=== PATIENT | female | born 1985 | race Two or more races ===

== ENCOUNTER 2017-05-12 12:43 | Emergency (ER) | payer SELFPAY ==
[~2017-05-12] VITALS: Ht 165.1 cm; Wt 90.7 kg
[~2017-05-12 12:43] MED LIST: IBUPROFEN600 MG ORAL; NKM; NORCO 5-325 TA1 EACH ORAL; VALIUM5 MG PO
[2017-05-12] MEDS ORDERED: OCUFLOX5 ML OP (13:30)
--- NOTE | 2017-05-12 14:38 | Emergency Room Report ---
History of Present Illness General Chief Complaint: Eye Problems Source: Patient Present Illness [facility] The patient is a 31 yo F presenting with bilateral eye pain, eye discharge, and eyelid swelling which began 3 days prior. Pain is a 4/10 dull ache to both eyes. She noticed yellow discharge. No changes in vision. She denies other symptoms such as fever, chills, [place], nasal congestion Allergies: Coded Allergies: No Known Allergies (Unverified , 03/20/13) Patient History Past Medical History: see triage record Pertinent Family History: none Reviewed Nursing Documentation: PMH: Agreed, PSxH: Agreed Nursing Documentation-PMH Past Medical History: No Stated History Review of Systems All Other Systems: negative except mentioned in HPI Physical Exam Vital Signs Date Time Temp Pulse Resp B/P Pulse Ox O2 Delivery O2 Flow Rate FiO2 05/12/17 13:01 98.8 97 20 120/68 99 Room Air Sp02 EP Interpretation: reviewed, normal General Appearance: no apparent distress, alert, GCS 15, non-toxic Head: normocephalic, atraumatic Eyes: bilateral eye EOMI, bilateral eye PERRL, bilateral eye Scleral Injection , bilateral eye lid inflammation ENT: hearing grossly normal, normal pharynx, no angioedema, normal voice Neck: full range of motion, supple/symm/no masses Neurologic: alert, oriented x3, responsive, motor strength/tone normal, sensory intact, speech normal Psychiatric: judgement/insight normal, memory normal, mood/affect normal, no suicidal/homicidal ideation Skin: normal color, no rash, warm/dry, well hydrated Medical Decision Making PA Attestation Dr. Gomez is my supervising physician. Patient management was discussed with my supervising physician Diagnostic Impression: Primary Impression: Bacterial conjunctivitis of both eyes ER Course The patient is a 31 yo F presenting with bilateral eye pain, eye discharge, and eyelid swelling Differential diagnoses considered but not limited to allergic conjunctivitis, bacterial conjunctivitis, viral conjunctivitis, blepharitis, hordeolum PE: afebrile. NAD Bilat upper eyelid edema, conjunctival injection, and yellow discharge She will be DC'ed with Ocuflox and needs to also use warm compresses. ER precautions given Last Vital Signs Date Time Temp Pulse Resp B/P Pulse Ox O2 Delivery O2 Flow Rate FiO2 05/12/17 13:01 98.8 97 20 120/68 99 Room Air Status: improved Disposition: HOME, SELF-CARE Condition: Improved Scripts Ofloxacin (OCUFLOX) 5 Ml Drops 2 DROP OP Q4HR, #5 ML Prov: JUAN AGUILERA 05/12/17 Referrals: NOT CHOSEN IPA/MD,REFERRING (PCP) Patient Instructions: Bacterial Conjunctivitis Additional Instructions: I discussed my findings with the patient. All questions and concerns have been answered. Treatment and medication compliance have been addressed. I advised the patient that they need to follow up with PMD in 3-5 days. Return to ED if symptoms worsen, new symptoms arise, or if needed for any reason. Patient verbalized understanding of discharge instructions. JUAN AGUILERA May 12, 2017 14:38
[2017-05-12 14:55] VITALS: BP 120/68
[2017-05-12 14:57] VITALS: BP 120/68
== END 2017-05-12 14:00 | disposition home or self-care (01) ==
LOC: EMR 13:35
DX: H10.89 Other conjunctivitis (principal)
CPT/HCPCS: 99283